=== PATIENT | male | born 1985 ===

== ENCOUNTER 2017-09-18 03:26 | Emergency (ER) | payer SELFPAY ==
[2017-09-18 03:33] VITALS: BP 136/88
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
[2017-09-18] MEDS ORDERED: MOTRIN PO ONE (07:07)
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
[2017-09-18] MEDS ORDERED: BOOSTRIX IM ONE (07:47)
== END 2017-09-18 07:57 | disposition home or self-care (01) ==
LOC: ED 03:26
DX: S63.502A Unspecified sprain of left wrist, initial encounter (principal); S60.221A Contusion of right hand, initial encounter; F17.200 Nicotine dependence, unspecified, uncomplicated; V89.2XXA Person injured in unspecified motor-vehicle accident, traffic, initial encounter; Y93.89 Activity, other specified; Y99.8 Other external cause status; Y92.410 Unspecified street and highway as the place of occurrence of the external cause
CPT/HCPCS: 90471; 90715